=== PATIENT | female | born 1970 | race Caucasian/White ===

== ENCOUNTER 2019-03-03 13:01 | Emergency (ER) | payer MEDICAID ==
[2019-03-03] MEDS ORDERED: PROCHLORPERAZINE EDISYLATE INJ 10 MG/2 ML VIAL IV ONE (13:15)
[2019-03-03] MEDS ORDERED: DIPHENHYDRAMINE HCL 50 MG/ML VIAL IV ONE (13:15)
[2019-03-03] MEDS ORDERED: NORMAL SALINE 1000 ML 1,000 ML IV ONE (13:16)
--- NOTE | 2019-03-03 13:20 | ER Document Report ---
ED Medical Screen (RME) - General Chief Complaint: Headache Stated Complaint: HEADACHE Time Seen by Provider: 03/03/19 13:10 Primary Care Provider: RAEANN BRAVO MD [Primary Care Provider] - Follow up as needed Mode of Arrival: Ambulatory Information source: Patient Notes: Patient presents complaining of right-sided headache that started yesterday and worsened today. Patient denies any head injury nausea or vomiting. Patient states that symptoms did start with the changing of her anticoagulation medication. Patient states that she her friend was recently stopped and she has been on Lovenox injections and has recently started taking Xarelto 2 days ago. Patient does report a history of pulmonary embolism and sickle cell disease. Patient recently had stents in her common bile duct removed on 02/18/2019. I have greeted and performed a rapid initial assessment of this patient. A comprehensive ED assessment and evaluation of the patient, analysis of test results and completion of the medical decision making process will be conducted by additional ED providers. TRAVEL OUTSIDE OF THE [place] IN LAST 30 DAYS: No - Related Data Allergies/Adverse Reactions: No Known Allergies Allergy (Verified 03/03/19 13:11) Past Medical History - Social History Chew tobacco use (# tins/day): No Frequency of alcohol use: None Drug Abuse: None Physical Exam - Vital signs Vitals: Temp Pulse Resp BP Pulse Ox 98.4 F 72 18 142/83 H 98 03/03/19 13:08 03/03/19 13:08 03/03/19 13:08 03/03/19 13:08 03/03/19 13:08 - Neurological Neuro grossly intact: Yes Garret Coma Scale Eye Opening: Spontaneous [place] Coma Scale Verbal: Oriented [place] Coma Scale Motor: Obeys Commands Garret Coma Scale Total: 15 Course - Vital Signs Vital signs: Temp Pulse Resp BP Pulse Ox 98.4 F 72 18 142/83 H 98 03/03/19 13:08 03/03/19 13:08 03/03/19 13:08 03/03/19 13:08 03/03/19 13:08 Doctor's Discharge - Discharge Referrals: RAEANN BRAVO MD [Primary Care Provider] - Follow up as needed
--- NOTE | 2019-03-03 13:56 | RADIOLOGY REPORT (SQ) ---
EXAM DESCRIPTION: CT HEAD WITHOUT COMPLETED DATE/TIME: 03/03/2019 1:33 pm REASON FOR STUDY: GAGE, on xarelto COMPARISON: None. TECHNIQUE: Axial images acquired through the brain without intravenous contrast. Images reviewed wi th bone, brain and subdural windows. Images stored on PACS. All CT scanners at this facility use dose modulation, iterative reconstruction, and/or weight based d osing when appropriate to reduce radiation dose to as low as reasonably achievable (ALARA). [facility]: Dose Right [facility]: CareDose [facility]: Dose Right [facility]: Teradose 4D [facility]: Smart MD On-Line RADIATION DOSE: CT Rad equipment meets quality standard of care and radiation dose reduction techniq ues were employed. CTDIvol: 53.2 mGy. DLP: 1017 mGy-cm. mGy. LIMITATIONS: None. FINDINGS: VENTRICLES: Normal size and contour. CEREBRUM: No masses. No hemorrhage. No midline shift. No evidence for acute infarction. Normal gra y/white matter differentiation. No areas of low density in the white matter. CEREBELLUM: No masses. No hemorrhage. No alteration of density. No evidence for acute infarction. EXTRAAXIAL SPACES: No fluid collections. No masses. ORBITS AND GLOBE: No intra- or extraconal masses. Normal contour of globe without masses. CALVARIUM: No fracture. PARANASAL SINUSES: No fluid or mucosal thickening. SOFT TISSUES: No mass or hematoma. OTHER: No other significant finding. IMPRESSION: NORMAL BRAIN CT WITHOUT CONTRAST. EVIDENCE OF ACUTE STROKE: NO. COMMENT: Quality ID # [id number]: Final reports with documentation of one or more dose reduction techniques (e.g., Automated exposure control, adjustment of the mA and/or kV according to patient size, use of iterative reconstruction technique) TECHNICAL DOCUMENTATION: JOB ID: [id number] [employer]- All Rights Reserved Reading location - IP/workstation name: [email or web address]
[2019-03-03 14:18] LABS: ABSOLUTE LYMPHOCYTES (AUTO) 1.2 10^3/uL (0.5-4.7); ABSOLUTE MONOCYTES (AUTO) 0.6 10^3/uL (0.1-1.4); ABSOLUTE NEUT (AUTO) 4.4 10^3/uL (1.7-8.2); ABSOLUTE RETICS # 0.126 10^6/uL (0.028-0.122); BASOPHILS % (AUTO) 0.6 % (0-2); EOSINOPHILS % (AUTO) 0.7 % (0-6); HEMATOCRIT 33.2 % (36.0-47.0); HEMOGLOBIN 11.5 g/dL (12.0-15.5); LYMPHOCYTES % (AUTO) 19.1 % (13-45); MEAN CORPUSCULAR HEMOGLOBIN 37.5 pg (27.0-33.4); MEAN CORPUSCULAR HGB CONC 34.5 g/dL (32.0-36.0); MEAN CORPUSCULAR VOLUME 109 fl (80-97); MONOCYTES % (AUTO) 9.4 % (3-13); PLATELET COUNT 472 10^3/uL (150-450); RED BLOOD COUNT 3.05 10^6/uL (3.72-5.28); RETICULOCYTE COUNT (AUTO) 4.14 % (0.66-2.85); SEGMENTED NEUTROPHILS % (AUTO) 70.2 % (42-78); TOTAL CELLS COUNTED % (AUTO) 100 %; WHITE BLOOD COUNT 6.2 10^3/uL (4.0-10.5)
[2019-03-03 14:19] LABS: INTERNATIONAL RATION (INR) 1.38; PROTHROMBIN TIME 17.1 SEC (11.4-15.4)
[2019-03-03 14:20] LABS: PARTIAL THROMBOPLASTIN TIME 32.5 SEC (23.5-35.8)
[2019-03-03] MEDS ORDERED: LORAZEPAM INJ 2 MG/1 ML VIAL IM ONE (14:23)
[2019-03-03] MEDS ORDERED: METOCLOPRAMIDE HCL INJ/PF 10 MG/2 ML SDV IM ONE (14:23)
[2019-03-03] MEDS ORDERED: DIPHENHYDRAMINE HCL 50 MG/ML VIAL IM ONE (14:23)
--- NOTE | 2019-03-03 14:30 | ER Document Report ---
ED General - General Chief Complaint: Headache Stated Complaint: HEADACHE Time Seen by Provider: 03/03/19 13:10 Primary Care Provider: RAEANN BRAVO MD [Primary Care Provider] - Follow up as needed Mode of Arrival: Ambulatory Information source: Patient Notes: 48-year-old female with hypertension, recent pulmonary embolism presents with complaint of headache that started yesterday. Patient reports that the headache was gradual in onset and worsened today. She describes it as a throbbing aching pain in her forehead. She denies any associated nausea, vomiting, fever, trauma. She has had photophobia. Patient reports that she was recently switched from Coumadin to Xarelto by Dr. Alonzo. TRAVEL OUTSIDE OF THE [place] IN LAST 30 DAYS: No - HPI Onset: Yesterday Onset/Duration: Gradual, Persistent, Worse Quality of pain: Throbbing Severity: Severe Pain Level: 3 Associated symptoms: Headache. denies: Chest pain, Earache, Fever, Nausea, Vomiting, Slow to respond Exacerbated by: Denies Relieved by: Denies Similar symptoms previously: Yes Recently seen / treated by doctor: Yes - Related Data Allergies/Adverse Reactions: No Known Allergies Allergy (Verified 03/03/19 13:11) Past Medical History - General Information source: Patient - Social History Smoking Status: Never Smoker Chew tobacco use (# tins/day): No Frequency of alcohol use: None Drug Abuse: None Lives with: Family Family History: Reviewed & Not Pertinent Patient has suicidal ideation: No Patient has homicidal ideation: No - Past Medical History Cardiac Medical History: Reports: Hx Hypertension Review of Systems - Review of Systems Notes: REVIEW OF SYSTEMS: CONSTITUTIONAL : Denies fever, chills, or sweats. Denies recent illness. Denies weight loss, recent hospitalizations. EENT: Denies visual changes, eye pain. Denies sore throat, oral lesions, difficulty swallowing. CARDIOVASCULAR: Denies chest pain. Denies palpitations. Denies lower extremity edema. RESPIRATORY: Denies cough. Denies shortness of breath, wheezing. GASTROINTESTINAL: Denies abdominal pain or distention. Denies nausea, vomiting, or diarrhea. Denies blood in vomitus, stools, or per rectum. Denies black, tarry stools. Denies constipation. GENITOURINARY: Denies difficulty urinating, painful urination, frequency, blood in urine, or vaginal discharge. MUSCULOSKELETAL: Denies back or neck pain or stiffness. Denies joint pain or swelling. SKIN: Denies rash, lesions or sores. HEMATOLOGIC : Denies easy bruising or bleeding. LYMPHATIC: Denies swollen glands. NEUROLOGICAL: Denies confusion or altered mental status. Denies loss of consciousness. Denies dizziness or lightheadedness. Denies weakness or paralysis. Denies problems difficulty with ambulation, slurred speech. Denies sensory loss, numbness, or tingling. Denies seizures. PSYCHIATRIC: Denies anxiety or stress. Denies depression, suicidal ideation, or homicidal ideation. Denies visual or auditory hallucinations. Physical Exam - Vital signs Vitals: Temp Pulse Resp BP Pulse Ox 98.4 F 72 18 142/83 H 98 03/03/19 13:08 03/03/19 13:08 03/03/19 13:08 03/03/19 13:08 03/03/19 13:08 - Notes Notes: PHYSICAL EXAMINATION: GENERAL: Ill-appearing, moderate distress HEAD: Atraumatic, normocephalic. EYES: Pupils equal round and reactive to light, extraocular movements intact, conjunctiva are normal. ENT: Nares patent, oropharynx clear without exudates. Moist mucous membranes. NECK: Normal range of motion, supple without lymphadenopathy LUNGS: Breath sounds clear to auscultation bilaterally and equal. No wheezes rales or rhonchi. HEART: Regular rate and rhythm without murmurs ABDOMEN: Soft, nontender, nondistended abdomen. No guarding, no rebound. No masses appreciated. Female : deferred Musculoskeletal: Normal range of motion, no pitting or edema. No cyanosis. NEUROLOGICAL: Cranial nerves grossly intact. Normal speech, normal gait. Sarah l sensory, motor exams PSYCH: Normal mood, normal affect. SKIN: Warm, Dry, normal turgor, no rashes or lesions noted. Course - Re-evaluation Re-evalutation: Laboratory 03/03/19 03/03/19 03/03/19 13:57 13:57 13:57 WBC 6.2 RBC 3.05 L Hgb 11.5 L Hct 33.2 L MCV 109 H MCH 37.5 H MCHC 34.5 RDW 18.0 H Plt Count 472 H Lymph % (Auto) 19.1 [place] % (Auto) 9.4 Eos % (Auto) 0.7 Baso % (Auto) 0.6 Reticulocyte # 0.126 H Absolute Neuts (auto) 4.4 Absolute Lymphs (auto) 1.2 Absolute Monos (auto) 0.6 Absolute Eos (auto) 0.0 Absolute Basos (auto) 0.0 Seg Neutrophils % 70.2 Platelet Comment INCREASED Polychromasia SLIGHT Anisocytosis 1+ Macrocytosis 2+ Sickle Cells SLIGHT Tear Drop Cells SLIGHT Ovalocytes 1+ Retic Count (auto) 4.14 H PT 17.1 H INR 1.38 APTT 32.5 Sodium Cancelled Potassium Cancelled Chloride Cancelled Carbon Dioxide Cancelled Anion Gap Cancelled BUN Cancelled Creatinine Cancelled Est GFR ( Amer) Cancelled Est GFR (Non-Af Amer) Cancelled Est GFR (MDRD) Non-Af Cancelled Glucose Cancelled Calcium Cancelled Total Bilirubin Cancelled Direct Bilirubin Cancelled Neonat Total Bilirubin Cancelled Neonat Direct Bilirubin Cancelled Neonat Indirect Bili Cancelled AST Cancelled ALT Cancelled Alkaline Phosphatase Cancelled Total Protein Cancelled Albumin Cancelled EGFR Cancelled 03/03/19 14:56 WBC RBC Hgb Hct MCV MCH MCHC RDW Plt Count Lymph % (Auto) [place] % (Auto) Eos % (Auto) Baso % (Auto) Reticulocyte # Absolute Neuts (auto) Absolute Lymphs (auto) Absolute Monos (auto) Absolute Eos (auto) Absolute Basos (auto) Seg Neutrophils % Platelet Comment Polychromasia Anisocytosis Macrocytosis Sickle Cells Tear Drop Cells Ovalocytes Retic Count (auto) PT INR APTT Sodium 139.0 Potassium 3.9 Chloride 98 Carbon Dioxide 33 H Anion Gap 8 BUN 4 L Creatinine 0.43 L Est GFR ( Amer) > 60 Est GFR (Non-Af Amer) Est GFR (MDRD) Non-Af > 60 Glucose 101 Calcium 9.1 Total Bilirubin 1.6 H Direct Bilirubin 0.2 Neonat Total Bilirubin Not Reportable Neonat Direct Bilirubin Not Reportable Neonat Indirect Bili Not Reportable AST 47 H ALT 18 Alkaline Phosphatase 106 Total Protein 8.5 H Albumin 4.[address] 03/03/19 13:14 IMPRESSION: NORMAL BRAIN CT WITHOUT CONTRAST. EVIDENCE OF ACUTE STROKE: NO. Temp Pulse Resp BP Pulse Ox 98.5 F 77 18 107/61 94 03/03/19 17:36 03/03/19 17:36 03/03/19 13:08 03/03/19 17:36 03/03/19 17:36 03/03/19 15:55 Patient reevaluated after receiving IM Benadryl, IM Reglan, IM Ativan and she is resting comfortably. is at the bedside and questioning whether patient should stop her Xarelto. At this time I do not recommend discontinuation of her Xarelto as she is taking it for pulmonary embolism. CT of the head was obtained and showed no evidence of hemorrhage, stroke. CBC is without leukocytosis, significant anemia. CMP is without electrolyte abnormality. Patient's reticulocyte count is elevated. 03/03/19 17:27 Patient declining lumbar puncture. Complains of persistent headache despite sleeping throughout her ED course and multiple re-evaluations that showed her sleeping peacefully. Explained to the patient that on blood thinning medications and a headache lasting greater than [address] to assure that she does not have bleeding on her brain as a lumbar puncture which she is declining. Patient is requesting fentanyl although she has a fentanyl patch. She is displaying drug-seeking behavior. Patient was discharged home in stable condition. 03/03/19 18:29 - Vital Signs Vital signs: Temp Pulse Resp BP Pulse Ox 98.5 F 77 18 107/61 94 03/03/19 17:36 03/03/19 17:36 03/03/19 13:08 03/03/19 17:36 03/03/19 17:36 - Laboratory Result Diagrams: 03/03/19 13:57 03/03/19 14:56 Laboratory results interpreted by me: 03/03/19 03/03/19 03/03/19 13:57 13:57 14:56 RBC 3.05 L Hgb 11.5 L Hct 33.2 L MCV 109 H MCH 37.5 H RDW 18.0 H Plt Count 472 H Reticulocyte # 0.126 H Retic Count (auto) 4.14 H PT 17.1 H Carbon Dioxide 33 H BUN 4 L Creatinine 0.43 L Total Bilirubin 1.6 H AST 47 H Total Protein 8.5 H - Diagnostic Test Radiology reviewed: Image reviewed, Reports reviewed Discharge - Discharge Clinical Impression: Headache Qualifiers: Headache type: unspecified Headache chronicity pattern: acute headache Intractability: not intractable Qualified Code(s): R51 - Headache Condition: Fair Disposition: HOME, SELF-CARE Instructions: Headache ([facility]), Pain Medication Injection ([facility]) Additional Instructions: You have been seen in the Emergency Department (ED) for a headache. Please use Tylenol (acetaminophen) or Motrin (ibuprofen) as needed for symptoms, but only as written on the box. As we have discussed, please follow up with your primary care doctor as soon as possible regarding today's ED visit and your headache symptoms. Call your doctor or return to the ED if you have a worsening headache, sudden and severe headache, confusion, slurred speech, facial droop, weakness or numbness in any arm or leg, extreme fatigue, or other symptoms that concern you. Prescriptions: Metoclopramide HCl [Reglan 10 mg Tablet] 1 tab PO Q8H PRN #12 tablet PRN Reason: For Headache Referrals: RAEANN BRAVO MD [Primary Care Provider] - Follow up as needed
[2019-03-03 14:52] LABS: ANISOCYTOSIS 1+; POLYCHROMASIA SLIGHT
[2019-03-03 14:53] LABS: OVALOCYTES 1+; SICKLE RED CELLS SLIGHT; TEAR DROP CELLS SLIGHT
[2019-03-03 14:54] LABS: PLATELET COMMENT INCREASED
[2019-03-03 15:32] LABS: ALKALINE PHOSPHATASE 106 U/L (38-126); ANION GAP 8 (5-19); ASPARTATE AMINO TRANSFERASE 47 U/L (14-36); BILIRUBIN,DIRECT 0.2 mg/dL (0.0-0.4); BILIRUBIN,TOTAL 1.6 mg/dL (0.2-1.3); BLOOD UREA NITROGEN 4 mg/dL (7-20); CALCIUM 9.1 mg/dL (8.4-10.2); CARBON DIOXIDE 33 mmol/L (22-30); CHLORIDE 98 mmol/L (98-107); GLUCOSE 101 mg/dL (75-110); POTASSIUM 3.9 mmol/L (3.6-5.0); TOTAL PROTEIN 8.5 g/dL (6.3-8.2)
[2019-03-03] MEDS ORDERED: DEXAMETHASONE 4 MG TABLET PO ONE (16:51)
[2019-03-03] MEDS ORDERED: HYDROMORPHONE HCL INJ/PF 2 MG/ML AMPULE IM ONE (17:27)
[2019-03-03 17:37] VITALS: BP 107/61
== END 2019-03-03 17:47 | disposition home or self-care (01) ==
LOC: ER 13:01
DX: R51 Headache (principal); H53.149 Visual discomfort, unspecified; I10 Essential (primary) hypertension; I26.99 Other pulmonary embolism without acute cor pulmonale; Z79.02 Long term (current) use of antithrombotics/antiplatelets
CPT/HCPCS: 36415; 85025; 85610; 85730; 85045; 80053; 70450; J3490; J1200; J2765; J1170; J2060; 96372; 99284

== ENCOUNTER 2019-03-08 15:15 | Emergency (ER) | payer MEDICAID ==
[2019-03-08 15:38] VITALS: BP 147/88
--- NOTE | 2019-03-08 16:04 | ER Document Report ---
ED Medical Screen (RME) - General Chief Complaint: Headache Stated Complaint: HEADACHE Time Seen by Provider: 03/08/19 15:56 Primary Care Provider: RAEANN BRAVO MD [Primary Care Provider] - Follow up as needed Mode of Arrival: Ambulatory Information source: Patient Notes: 48-year-old female presents to ED for complaint of a headache since the . She states she was on Coumadin that she has been taken long-term and she went to a new doctor and they started on Xarelto on the . She states that the next morning her headache was bad and she thought it was a hunger headache so she went on taken her Xarelto until Monday she came to the emergency room and they did a CAT scan and they said it was negative. She called her new doctor back up on Monday and got in to see her on Monday. She told her to stop taking the Xarelto and start on Eliquis. She states she took the Eliquis Monday morning and then she read that it stated it caused worse headaches so she called the doctor back up and he told her to take Coumadin so she started that on Monday night. She states she takes Coumadin 6 mg on Tuesdays and and 5 mg rest of the days. She states the headache is not getting any better. I have greeted and performed a rapid initial assessment of this patient. A comprehensive ED assessment and evaluation of the patient, analysis of test results and completion of medical decision making process will be conducted by an additional ED providers. TRAVEL OUTSIDE OF THE [place] IN LAST 30 DAYS: No - Related Data Allergies/Adverse Reactions: No Known Allergies Allergy (Verified 03/03/19 13:11) Past Medical History - Past Medical History Cardiac Medical History: Reports: Hx Hypertension Physical Exam - Vital signs Vitals: Temp Pulse Resp BP Pulse Ox 98.6 F 95 16 147/88 H 96 03/08/19 15:32 03/08/19 15:32 03/08/19 15:32 03/08/19 15:32 03/08/19 15:32 Course - Vital Signs Vital signs: Temp Pulse Resp BP Pulse Ox 98.6 F 95 16 147/88 H 96 03/08/19 15:32 03/08/19 15:32 03/08/19 15:32 03/08/19 15:32 03/08/19 15:32 Doctor's Discharge - Discharge Referrals: RAEANN BRAVO MD [Primary Care Provider] - Follow up as needed
--- NOTE | 2019-03-08 17:20 | RADIOLOGY REPORT (SQ) ---
EXAM DESCRIPTION: CT HEAD WITHOUT COMPLETED DATE/TIME: 03/08/2019 5:05 pm REASON FOR STUDY: severe headache multiple blood thinners used (hpi) COMPARISON: None. TECHNIQUE: Axial images acquired through the brain without intravenous contrast. Images reviewed wi th bone, brain and subdural windows. Images stored on PACS. All CT scanners at this facility use dose modulation, iterative reconstruction, and/or weight based d osing when appropriate to reduce radiation dose to as low as reasonably achievable (ALARA). [facility]: Dose Right [facility]: CareDose [facility]: Dose Right [facility]: Teradose 4D [facility]: [employer] RADIATION DOSE: CT Rad equipment meets quality standard of care and radiation dose reduction techniq ues were employed. CTDIvol: 53.2 mGy. DLP: 964 mGy-cm. mGy. LIMITATIONS: None. FINDINGS: VENTRICLES: Normal size and contour. CEREBRUM: No masses. No hemorrhage. No midline shift. No evidence for acute infarction. Normal gra y/white matter differentiation. No areas of low density in the white matter. CEREBELLUM: No masses. No hemorrhage. No alteration of density. No evidence for acute infarction. EXTRAAXIAL SPACES: No fluid collections. No masses. ORBITS AND GLOBE: No intra- or extraconal masses. Normal contour of globe without masses. CALVARIUM: No fracture. PARANASAL SINUSES: No fluid or mucosal thickening. SOFT TISSUES: No mass or hematoma. OTHER: No other significant finding. IMPRESSION: NORMAL BRAIN CT WITHOUT CONTRAST. EVIDENCE OF ACUTE STROKE: NO. COMMENT: Quality ID # [id number]: Final reports with documentation of one or more dose reduction techniques (e.g., Automated exposure control, adjustment of the mA and/or kV according to patient size, use of iterative reconstruction technique) TECHNICAL DOCUMENTATION: JOB ID: [id number]- All Rights Reserved Reading location - IP/workstation name: [email or web address]
[2019-03-08 18:59] LABS: INTERNATIONAL RATION (INR) 1.45; PROTHROMBIN TIME 17.8 SEC (11.4-15.4)
[2019-03-08 19:00] LABS: ABSOLUTE BASOPHILS # (AUTO) 0.1 10^3/uL (0.0-0.2); ABSOLUTE EOSINOPHILS # (AUTO) 0.1 10^3/uL (0.0-0.6); ABSOLUTE LYMPHOCYTES (AUTO) 1.9 10^3/uL (0.5-4.7); ABSOLUTE MONOCYTES (AUTO) 0.6 10^3/uL (0.1-1.4); ABSOLUTE NEUT (AUTO) 5.1 10^3/uL (1.7-8.2); BASOPHILS % (AUTO) 0.8 % (0-2); EOSINOPHILS % (AUTO) 0.7 % (0-6); HEMATOCRIT 33.7 % (36.0-47.0); HEMOGLOBIN 11.7 g/dL (12.0-15.5); LYMPHOCYTES % (AUTO) 24.2 % (13-45); MEAN CORPUSCULAR HEMOGLOBIN 37.3 pg (27.0-33.4); MEAN CORPUSCULAR HGB CONC 34.7 g/dL (32.0-36.0); MEAN CORPUSCULAR VOLUME 108 fl (80-97); MONOCYTES % (AUTO) 7.9 % (3-13); PARTIAL THROMBOPLASTIN TIME 36.2 SEC (23.5-35.8); PLATELET COUNT 413 10^3/uL (150-450); RED BLOOD COUNT 3.14 10^6/uL (3.72-5.28); RED CELL DISTRIBUTION WIDTH 16.5 % (11.5-14.0); SEGMENTED NEUTROPHILS % (AUTO) 66.4 % (42-78); TOTAL CELLS COUNTED % (AUTO) 100 %; WHITE BLOOD COUNT 7.7 10^3/uL (4.0-10.5)
[2019-03-08 19:12] LABS: ALBUMIN 4.3 g/dL (3.5-5.0); ALKALINE PHOSPHATASE 113 U/L (38-126); ANION GAP 9 (5-19); ASPARTATE AMINO TRANSFERASE 41 U/L (14-36); BILIRUBIN,DIRECT 0.2 mg/dL (0.0-0.4); BILIRUBIN,TOTAL 1.5 mg/dL (0.2-1.3); BLOOD UREA NITROGEN 8 mg/dL (7-20); CALCIUM 9.6 mg/dL (8.4-10.2); CARBON DIOXIDE 34 mmol/L (22-30); CHLORIDE 97 mmol/L (98-107); GLUCOSE 91 mg/dL (75-110); POTASSIUM 3.9 mmol/L (3.6-5.0); TOTAL PROTEIN 9.2 g/dL (6.3-8.2)
[2019-03-08 19:21] LABS: ANISOCYTOSIS 1+; OVALOCYTES SLIGHT; SICKLE RED CELLS SLIGHT; TEAR DROP CELLS SLIGHT
[2019-03-08 19:22] LABS: PLATELET COMMENT ADEQUATE; TARGET CELLS 1+
[2019-03-08 20:33] LABS: RETICULOCYTE COUNT (AUTO) 2.76 % (0.66-2.85)
[2019-03-08 20:34] LABS: ABSOLUTE RETICS # 0.088 10^6/uL (0.028-0.122)
[2019-03-08] MEDS ORDERED: METOCLOPRAMIDE HCL INJ/PF 10 MG/2 ML SDV IV ONE (21:56)
[2019-03-08] MEDS ORDERED: DIPHENHYDRAMINE HCL 50 MG/ML VIAL IV ONE (21:56)
--- NOTE | 2019-03-08 21:59 | ER Document Report ---
ED Headache - General Chief Complaint: Headache Stated Complaint: HEADACHE Time Seen by Provider: 03/08/19 15:56 Primary Care Provider: RAEANN BRAVO MD [Primary Care Provider] - Follow up as needed Mode of Arrival: Ambulatory Information source: Patient TRAVEL OUTSIDE OF THE [place] IN LAST 30 DAYS: No - HPI Patient complains to provider of: "Migraine". No: Headache, Facial pain, Other Patient reports: No: Brain neoplasm, Congenital anomally, Frequent migraines, Hx chronic headaches, Occasional migraines, Prior CVA, Prior hemorrhage, Prior neurologic eval, Prior TBI, [employer] Shunt, Other Onset was: denies: Abrupt, Cannot pinpoint, Thunderclap, While turning head, Other Timing: Still present Quality of pain: Achy, Throbbing. denies: No pain, Burning, Cramping, Dull, Fullness, Pressure, Sharp, Stabbing, Other Severity: Moderate Pain Level: 2 Preceding symptoms: denies: Typical of prior aura(s), Visual disturbance, Other Associated symptoms: denies: None, Chills, Confusion, Dizzy, Double/blurred vision, Fainting, Fever, Lightheaded, Memory loss, Motion sickness, Motor/sensory loss to arm, Motor/sensory loss to leg, Nausea/vomiting, Neck pain, Photophobia, Speech problems, Stiff neck, Sweaty, Tingling/numb sensation, Trouble walking, Other Exacerbated by: Light, Noise, Movement Similar symptoms previously: Yes - Related Data Allergies/Adverse Reactions: No Known Allergies Allergy (Verified 03/03/19 13:11) Home Medications: Hydrochlorithiazide. Coumadin 5-6mg. Percocet. Warfarin Past Medical History - General Information source: Patient - Social History Smoking Status: Unknown if Ever Smoked Frequency of alcohol use: None Drug Abuse: None Family History: Reviewed & Not Pertinent Patient has suicidal ideation: No Patient has homicidal ideation: No - Past Medical History Cardiac Medical History: Reports: Hx Hypertension Review of Systems - Review of Systems Constitutional: denies: No symptoms reported, See HPI, Chills, Diaphoresis, Fever, Malaise, Weakness, Other, Weight gain, Weight loss, Recent illness EENT: denies: No symptoms reported, See HPI, Eye pain, Eye discharge, Blurred vision, Tearing, Double vision, Ear pain, Ear discharge, Nose pain, Nose congestion, Nose discharge, Sinus pressure, Sinus discharge, Throat pain, Difficulty swallowing, Throat swelling, Mouth pain, Mouth swelling, Dental problem, Vertigo, Other Cardiovascular: denies: No symptoms reported, See HPI, Chest pain, Palpitations, Heart racing, Orthopnea, Dyspnea, Syncope, Dizziness, Lightheaded, Edema, Other, Paroxysmal Nocturnal Dysp Respiratory: denies: No symptoms reported, See HPI, Cough, Hurts to breathe, Hemoptysis, Short of breath, Sputum, Stridor, Wheezing, Other Gastrointestinal: denies: No symptoms reported, See HPI, Abdomen distended, Abdominal pain, Diarrhea, Nausea, Vomiting, Constipation, Blood streaked bowels, Poor appetite, Poor fluid intake, Blood in vomit, Black stools, Rectal bleeding, Last bowel movement, Fecal incontinence, Other Genitourinary: denies: No symptoms reported, See HPI, Burning, Dysuria, Discha rge, Frequency, Flank pain, Hematuria, Incontinence, Pain, Urgency, Retention, Other Neurological/Psychological: Headaches. denies: No symptoms reported, See HPI, Confusion, Dementia, Depression, Hallucinations, Anxiety, Homicidal ideation, Sensory change, Weakness, Gait changes, Loss of power, Paralysis, Seizure, Lost consciousness, Speech impairment, Numbness, Suicidal ideation, Tingling, Tremor, Other -: Yes All other systems reviewed and negative Physical Exam - Vital signs Vitals: Temp Pulse Resp BP Pulse Ox 98.6 F 95 16 147/88 H 96 03/08/19 15:32 03/08/19 15:32 03/08/19 15:32 03/08/19 15:32 03/08/19 15:32 Notes: PHYSICAL EXAMINATION: GENERAL: Well-appearing, well-nourished and in no acute distress. HEAD: Atraumatic, normocephalic. EYES: Pupils equal round and reactive to light, extraocular movements intact, sclera anicteric, conjunctiva are normal. ENT: nares patent, oropharynx clear without exudates. Moist mucous membranes. NECK: Normal range of motion, supple without lymphadenopathy LUNGS: Breath sounds clear to auscultation bilaterally and equal. No wheezes rales or rhonchi. HEART: Regular rate and rhythm without murmurs ABDOMEN: Soft, nontender, normoactive bowel sounds. No guarding, no rebound. No masses appreciated. EXTREMITIES: Normal range of motion, no pitting or edema. No cyanosis. NEUROLOGICAL: No focal neurological deficits. Moves all extremities spontaneously and on command. PSYCH: Normal mood, normal affect. SKIN: Warm, Dry, normal turgor, no rashes or lesions noted. Course - Vital Signs Vital signs: Temp Pulse Resp BP Pulse Ox 98.6 F 95 16 147/88 H 96 03/08/19 15:32 03/08/19 15:32 03/08/19 15:32 03/08/19 15:32 03/08/19 15:32 - Laboratory Result Diagrams: 03/08/19 18:42 03/08/19 18:42 Laboratory results interpreted by me: 03/08/19 03/08/19 03/08/19 18:42 18:42 18:42 RBC 3.14 L Hgb 11.7 L Hct 33.7 L MCV 108 H MCH 37.3 H RDW 16.5 H PT 17.8 H APTT 36.2 H Chloride 97 L Carbon Dioxide 34 H Creatinine 0.44 L Total Bilirubin 1.5 H AST 41 H Total Protein 9.2 H - Diagnostic Test Radiology reviewed: Image reviewed, Reports reviewed - Transfer of Care Notes: 03/08/19 23:27 Note on reexam patient is feeling better we will give her additional Toradol though she says her headaches gone from around 9 or 10 and about a 4 3 [facility]. The CT negative and all other labs negative I will send her home with her some Fioricet she should return if any worse Discharge - Discharge Clinical Impression: Migraine headache Qualifiers: Migraine type: without aura Status migrainosus presence: without status migrainosus Intractability: not intractable Qualified Code(s): G43.009 - Migraine without aura, not intractable, without status migrainosus Condition: Good Disposition: HOME, SELF-CARE Instructions: Use of Diphenhydramine, Toradol Injection ([facility]), Reglan ([facility]), Headache ([facility]) Additional Instructions: Increase your fluids in your diet return if worse Prescriptions: Butalb/Acetaminophen/Caffeine [Fioricet (50-325-40 mg) Tablet] 1 tab PO Q4HP PRN #30 tab PRN Reason: Referrals: RAEANN BRAVO MD [Primary Care Provider] - Follow up as needed
[2019-03-08] MEDS ORDERED: KETOROLAC TROMETHAMINE INJ/PF 30 MG/1 ML SDV IV ONE (23:04)
== END 2019-03-09 | disposition home or self-care (01) ==
LOC: ER 15:15
DX: G43.009 Migraine without aura, not intractable, without status migrainosus (principal); I10 Essential (primary) hypertension; Z79.899 Other long term (current) drug therapy; Z79.01 Long term (current) use of anticoagulants; Z79.891 Long term (current) use of opiate analgesic
CPT/HCPCS: 36415; 85025; 85610; 85730; 85045; 80053; 70450; J1200; J1885; J2765; 96374; 96375; 99284